=== PATIENT | female | born 2000 | race Two or more races ===

== ENCOUNTER 2022-03-08 04:20 | Inpatient (IN) | payer MEDICAID ==
[~2022-03-08 04:20] MED LIST: Ondansetron 4 MG/2 ML SDV IVPUSH PRN; Oxytocin/Lactated Ringers 10 UNIT/1,000 ML BAG IV SCH; Sodium Chloride 0.9% 10 ML Syringe FLUSH PRN
[2022-03-08] MEDS: Lactated Ringers 1,000 ML IV SCH ×2 (05:10→07:00)
[2022-03-08] MEDS ORDERED: Citric Acid/Sodium Citrate Solution 30 ML Cup PO ONE ×2 (06:00→07:15)
[2022-03-08] MEDS ORDERED: Metoclopramide 10 MG/2 ML SDV IVPUSH ONE ×2 (06:00→07:15)
[2022-03-08] MEDS ORDERED: ceFAZolin 2 GM in Sodium Chloride 0.9% 50 ML IV ONE ×2 (06:00→07:15)
[2022-03-08] MEDS ORDERED: Morphine PF 10 MG/10 ML SDV ONE (06:52)
[2022-03-08] MEDS ORDERED: fentaNYL 100 MCG/2 ML SDV ONE (06:52)
[2022-03-08] MEDS ORDERED: ceFAZolin 2 GM Vial ONE (06:54)
[2022-03-08] MEDS ORDERED: Bupivacaine 0.5% 30 ML SDV ONE (06:56)
[2022-03-08] MEDS ORDERED: Ondansetron 4 MG/2 ML SDV IVPUSH PRN ×2 (07:11→07:33)
[2022-03-08] MEDS ORDERED: Oxytocin/Lactated Ringers 10 UNIT/1,000 ML BAG IV SCH (07:15)
[2022-03-08] MEDS ORDERED: Lactated Ringers 1,000 ML IV SCH (07:15)
[2022-03-08] MEDS ORDERED: fentaNYL 100 MCG/2 ML SDV IVPUSH PRN (07:33)
[2022-03-08] MEDS ORDERED: diphenhydrAMINE 50 MG/ML SDV IVPUSH PRN ×2 (07:33→11:12)
[2022-03-08] MEDS ORDERED: Phenylephrine HCl In 0.9% NaCl 1 MG/10 ML Vial ONE (07:56)
[2022-03-08] MEDS ORDERED: Lactated Ringers 1,000 ML ONE (08:00)
[2022-03-08] MEDS ORDERED: Ondansetron 4 MG/2 ML SDV ONE (08:12)
[2022-03-08] MEDS ORDERED: Oxytocin 10 Units/1 ML SDV ONE (08:15)
[2022-03-08] MEDS ORDERED: Ketorolac 30 MG/ML SDV ONE (08:30)
[2022-03-08] MEDS ORDERED: ePHEDrine 50 MG/ML SDV IVPUSH PRN (11:12)
[2022-03-08] MEDS ORDERED: Dextrose 5%-Lactated Ringers 1,000 ML IV SCH (11:12)
[2022-03-08] MEDS ORDERED: Acetaminophen/oxyCODONE 325-5 MG Tab PO PRN ×2 (11:12)
[2022-03-08] MEDS ORDERED: Acetaminophen 325 MG Tab PO PRN (11:12)
[2022-03-08] MEDS ORDERED: Naloxone 0.4 MG/ML SDV IVPUSH PRN (11:12)
[2022-03-08] MEDS: Ketorolac 30 MG/ML SDV IVPUSH SCH (14:28)
[2022-03-09] MEDS: Ketorolac 30 MG/ML SDV IVPUSH SCH ×2 (00:28→06:04)
[2022-03-09] MEDS ORDERED: Ketorolac 30 MG/ML SDV IVPUSH SCH ×2 (05:15→06:00)
[2022-03-09] MEDS: Ibuprofen 600 MG Tab PO PRN (19:52)
[2022-03-10] MEDS: Ibuprofen 600 MG Tab PO PRN ×2 (09:38→21:08)
[2022-03-11] MEDS: Ibuprofen 600 MG Tab PO PRN (08:31)
== END 2022-03-11 14:13 | disposition home or self-care (01) | DRG 788 ==
LOC: JD.OB 04:20
PROVIDERS: ADMIT Obstetrics & Gynecology; ATTEND Obstetrics & Gynecology
PROC: 10D00Z1 Extraction of Products of Conception, Low, Open Approach (ICD-10-PCS; principal; 2022-03-08)
DX: O34.211 Maternal care for low transverse scar from previous cesarean delivery (principal); Z37.0 Single live birth; Z3A.39 39 weeks gestation of pregnancy; Z87.891 Personal history of nicotine dependence
CPT/HCPCS: 01961; 36415; 59020; 82947; 85025; 86592; 86850; 86900; 86901; A9270-GY; J0690; J1885; J2274; J2405; J2590; J2765; J3010; J3490; J7120; J7121